=== PATIENT | male | born 1950 | race Caucasian/White ===

== ENCOUNTER 2018-05-31 16:39 | Inpatient (IN) | payer OTHER ==
[~2018-05-31] VITALS: Ht 177.8 cm; Wt 73.5 kg
[2018-05-31 16:47] VITALS: BP_SYST 134
[2018-05-31] MEDS ORDERED: NACL 0.9% 1,000 ML IV ONE (17:00)
[2018-05-31 17:19] LABS: BILIRUBIN,URINE NEGATIVE (NEGATIVE); BLOOD, URINE 1+ (NEGATIVE); CLARITY/URINE CLEAR (CLEAR); COLOR,URINE YELLOW (YELLOW); GLUCOSE,URINE NEGATIVE (NEGATIVE); KETONES,URINE NEGATIVE (NEGATIVE); LEUKOCYTE ESTERASE ,URINE NEGATIVE (NEGATIVE); NITRITE, URINE NEGATIVE (NEGATIVE); PH,URINE 5.5 (5.0-8.0); PROTEIN URINE NEGATIVE (NEGATIVE); UROBILINOGEN,URINE 0.2 (0.2-1.0)
[2018-05-31] MEDS ORDERED: LISI-217 PO (17:24)
[2018-05-31 17:31] LABS: PROTHROMBIN TIME 10.1 SECS (9.5-12.5)
[2018-05-31 17:35] LABS: CALCIUM 8.6 mg/dL (8.4-11.0); CREATININE 1.26 mg/dL (0.55-1.30); POTASSIUM 3.5 mmol/L (3.5-5.1)
[2018-05-31 17:40] LABS: ALBUMIN 3.2 g/dL (3.4-4.8); TOTAL BILIRUBIN 0.5 mg/dL (0.0-1.0)
[2018-05-31 17:41] LABS: BASOPHILS # (AUTO) 0.1 K/uL (0.0-0.2); BASOPHILS % (AUTO) 0.9 % (0.0-2.0); EOSINOPHILS # (AUTO) 0.1 K/uL (0.0-0.4); HEMATOCRIT 32.8 % (36-54); HEMOGLOBIN 11.4 g/dL (14.0-18.0); LYMPHOCYTES # (AUTO) 2.2 K/uL (1.0-5.5); LYMPHOCYTES % (AUTO) 25.3 % (20.5-51.5); MEAN CORPUSCULAR HEMOGLOBIN 33 pg (27-31); MEAN CORPUSCULAR HGB CONC 35 % (32-36); MEAN CORPUSCULAR VOLUME 95 fL (79.0-98.0); MONOCYTES # (AUTO) 0.5 K/uL (0.0-1.0); NEUTROPHILS % (AUTO) 66.8 % (40.0-70.0); PLATELET COUNT (AUTO) 361 K/uL (130-430); RED BLOOD CELL COUNT(AUTO) 3.44 MIL/uL (4.2-6.2); RED CELL DISTRIBUTION WIDTH 12.3 % (9.0-15.0); WHITE BLOOD COUNT (AUTO) 8.9 K/uL (4.8-10.8)
[2018-05-31 18:02] LABS: BACTERIA,URINE FEW /HPF (None Seen); MUCUS,URINE None Seen /LPF (None Seen); URIC ACID CRYSTALS,URINE 0-10 /HPF (None Seen)
[2018-05-31] MEDS ORDERED: ONDANSETRON HCL 4 MG/2 ML VIAL IVP PRN (20:00)
[2018-05-31] MEDS ORDERED: PANTOPRAZOLE SODIUM 40 MG/VIAL (PROTONIX) IVP ONE (20:00)
[2018-05-31 21:00] VITALS: BP_SYST 130
[2018-05-31] MEDS: HYDROmorphone 1 MG INJ. 1 MG/ML AMPUL IVP PRN (21:10)
[2018-05-31] MEDS: KCL 20 mEq in D5/0.45NS 1000mL 1,000 ML IV SCH (21:17)
[2018-06-01 00:14] VITALS: BP_SYST 120
[2018-06-01] MEDS: HYDROmorphone 1 MG INJ. 1 MG/ML AMPUL IVP PRN ×3 (01:32→19:32)
[2018-06-01] MEDS: KCL 20 mEq in D5/0.45NS 1000mL 1,000 ML IV SCH ×3 (05:27→23:16)
[2018-06-01 06:50] LABS: BASOPHILS # (AUTO) 0.1 K/uL (0.0-0.2); BASOPHILS % (AUTO) 1.6 % (0.0-2.0); EOSINOPHILS # (AUTO) 0.1 K/uL (0.0-0.4); EOSINOPHILS % (AUTO) 1.9 % (0.0-4.0); HEMOGLOBIN 10.3 g/dL (14.0-18.0); LYMPHOCYTES # (AUTO) 2.3 K/uL (1.0-5.5); LYMPHOCYTES % (AUTO) 36.5 % (20.5-51.5); MEAN CORPUSCULAR HEMOGLOBIN 32 pg (27-31); MEAN CORPUSCULAR HGB CONC 33 % (32-36); MEAN CORPUSCULAR VOLUME 97 fL (79.0-98.0); MONOCYTES # (AUTO) 0.5 K/uL (0.0-1.0); MONOCYTES % (AUTO) 7.5 % (1.7-9.3); NEUTROPHILS # (AUTO) 3.4 K/uL (1.8-7.7); NEUTROPHILS % (AUTO) 52.5 % (40.0-70.0); PLATELET COUNT (AUTO) 298 K/uL (130-430); RED CELL DISTRIBUTION WIDTH 12.4 % (9.0-15.0); WHITE BLOOD COUNT (AUTO) 6.4 K/uL (4.8-10.8)
[2018-06-01 07:06] LABS: ALBUMIN 2.6 g/dL (3.4-4.8); CREATININE 1.04 mg/dL (0.55-1.30); POTASSIUM 4.1 mmol/L (3.5-5.1); TOTAL BILIRUBIN 0.4 mg/dL (0.0-1.0)
[2018-06-01 08:52] VITALS: BP_SYST 114
[2018-06-01] MEDS ORDERED: PANTOPRAZOLE SODIUM 40 MG/VIAL (PROTONIX) IVP SCH (09:00)
[2018-06-01] MEDS ORDERED: SIMETHICONE 40 MG/0.6 ML ML ONE (12:58)
[2018-06-01] MEDS ORDERED: fentaNYL CITRATE/PF 100 MCG/2 ML AMP ONE (12:58)
[2018-06-01] MEDS ORDERED: MIDAZOLAM HCL 5 MG/5 ML VIAL ONE (12:59)
[2018-06-01 13:15] VITALS: BP_SYST 111
[2018-06-01] MEDS ORDERED: PANTOPRAZOLE SODIUM 80 MG in NS 100 ML IV ONE (15:00)
[2018-06-01] MEDS: PANTOPRAZOLE SODIUM 40 MG in NS 50 ML IV SCH ×2 (16:43→21:52)
[2018-06-01 16:47] VITALS: BP_SYST 116
[2018-06-01 19:45] VITALS: BP_SYST 142
[2018-06-01 23:08] VITALS: BP_SYST 117
[2018-06-02] MEDS: HYDROmorphone 1 MG INJ. 1 MG/ML AMPUL IVP PRN (03:05)
[2018-06-02] MEDS: PANTOPRAZOLE SODIUM 40 MG in NS 50 ML IV SCH ×2 (03:07→07:22)
[2018-06-02] MEDS: KCL 20 mEq in D5/0.45NS 1000mL 1,000 ML IV SCH (07:21)
[2018-06-02 07:39] LABS: THYROID STIMULATING HORMONE 2.97 uIu/mL (0.34-4.82)
[2018-06-02 07:40] LABS: TOTAL IRON BIND. CAPACITY 286 ug/dL (250-450)
[2018-06-02 08:10] VITALS: BP_SYST 123
[2018-06-02] MEDS ORDERED: PRO40 PO (10:40)
[2018-06-02] MEDS ORDERED: MULT PO (10:41)
[2018-06-02 11:55] VITALS: BP_SYST 123
[2018-06-02 12:05] VITALS: BP_SYST 102
[2018-06-05 02:10] LABS: FOLATE (FOLIC ACID) 12.2 ng/mL (>3.0)
== END 2018-06-02 12:50 | disposition home or self-care (01) | DRG 379 ==
LOC: SED 16:39 → STU 19:48
PROVIDERS: ADMIT Surgery; ATTEND Surgery
PROC: 0DB68ZX Excision of Stomach, Via Natural or Artificial Opening Endoscopic, Diagnostic (ICD-10-PCS; principal; 2018-06-01 13:30)
DX: K25.4 Chronic or unspecified gastric ulcer with hemorrhage (principal); I10 Essential (primary) hypertension; K57.31 Diverticulosis of large intestine without perforation or abscess with bleeding; K29.71 Gastritis, unspecified, with bleeding; N40.0 Benign prostatic hyperplasia without lower urinary tract symptoms; Z90.49 Acquired absence of other specified parts of digestive tract
CPT/HCPCS: 36415; 43239; 71045; 74021; 80053; 81000-TC; 82272; 82607; 82728; 82746; 83540-TC; 83550-TC; 83605; 83615-TC; 83690-TC; 84443-TC; 85025; 85610-TC; 86886; 86900; 86901; 87040-TC; 87081; 88305; 88312; 88313; 93005; 99285; C9113; J1170; J2250; J3010